=== PATIENT | male | born 1960 | race Caucasian/White ===

== ENCOUNTER 2017-10-26 18:00 | Emergency (ER) | payer BC ==
[~2017-10-26] VITALS: Ht 175.3 cm; Wt 95.3 kg
--- NOTE | 2017-10-26 18:06 | ED.ADGEN ---
Past History Past Medical History: CAD, COPD, Other Past Surgical History: Coronary Bypass Surgery Smoking: Cigarettes Adult General Chief Complaint Chief Complaint "... I been having a lot of neck pain... ".. " I am having it all up here in my neck..." HPI HPI Patient is a 56 year old male who presents with above hx and complaints two days of neck pain with movement. No hx of trauma. No chest pain or dyspnea. Pt. has had some nausea. Pt. pain has been constant for two days. Pt. has findings consistent for muscle spasms. No bruits note in neck. Pt. dose have a cardiac hx. with hx of coronary artery bypass in 2016. Pt. insistent it is not like his cardiac symptoms. . Review of Systems Review of Systems Constitutional: Denies fever or chills [] Eyes: Denies change in visual acuity, redness, or eye pain [] HENT: Denies nasal congestion or sore throat []Complaints of neck pain. Respiratory: Denies cough or shortness of breath [] Cardiovascular: No additional information not addressed in HPI [] GI: Denies abdominal pain, nausea, vomiting, bloody stools or diarrhea [] : Denies dysuria or hematuria [] Musculoskeletal: Denies back pain or joint pain [] Integument: Denies rash or skin lesions [] Neurologic: Denies headache, focal weakness or sensory changes [] Endocrine: Denies polyuria or polydipsia [] All other systems were reviewed and found to be within normal limits, except as documented in this note. Family History Family History Non-contributory Current Medications Current Medications Current Medications Medications (Trade) Dose Ordered Sig/Eric Start Time Stop Time Status Last Admin Dose Admin Ketorolac Tromethamine (Toradol) 30 mg 1X ONCE 10/26/17 18:30 10/26/17 18:32 DC 10/26/17 19:01 30 MG Lactated Ringer's 1,000 ml @ 1,000 mls/hr Q1H 10/26/17 18:30 10/26/17 19:29 DC 10/26/17 18:30 1,000 MLS/HR Magnesium Hydroxide (Milk Of Magnesia) 2,400 mg 1X ONCE 10/26/17 21:15 10/26/17 21:16 DC 10/26/17 21:13 2,400 MG Orphenadrine Citrate (Norflex) 60 mg 1X ONCE 10/26/17 18:30 10/26/17 18:32 DC 10/26/17 19:00 60 MG Potassium Chloride (KCl Oral Soln) 40 meq 1X ONCE 10/26/17 21:15 10/26/17 21:16 DC 10/26/17 21:12 40 MEQ See Nursing for home meds. Allergies Allergies Allergies Coded Allergies Type Severity Reaction Last Updated Verified erythromycin base Allergy Intermediate 10/26/17 Yes Physical Exam Physical Exam Constitutional: mild distress, non-toxic appearance. [] HENT: Normocephalic, atraumatic, bilateral external ears normal, oropharynx moist, no oral exudates, nose normal. [] Eyes: PERRLA, EOMI, conjunctiva normal, no discharge. [] Neck:, no stridor. [] Cervical muscle tenderness. Movement and neck is somewhat limited because of the muscle spasms cervical . Cardiovascular:Heart rate regular rhythm, no murmur [] PMI to Lt. Lungs & Thorax: Bilateral breath sounds equal at apex , few scattered wheezes on auscultation []Mid line scar. Abdomen: Bowel sounds normal, soft, no tenderness, no masses, no pulsatile masses. [] Scar. Skin: Warm, dry, no erythema, no rash. [] Back: No tenderness, no CVA tenderness. [] Extremities: No tenderness, no cyanosis, no clubbing, ROM intact, no edema. [] No cording. Neurologic: Alert and oriented X 3, normal motor function, normal sensory function, no focal deficits noted. [] Psychologic: Affect normal, judgement normal, mood normal. [] Current Patient Data Vital Signs Vital Signs Date Time Temp Pulse Resp B/P (MAP) Pulse Ox O2 Delivery O2 Flow Rate FiO2 10/26/17 21:19 64 18 132/79 (96) 98 Room Air 10/26/17 18:18 98.3 Lab Results Laboratory Tests Test 10/26/17 18:52 White Blood Count 9.2 x10^3/uL (4.0-11.0) Red Blood Count 4.76 x10^6/uL (4.30-5.70) Hemoglobin 14.7 g/dL (13.0-17.5) Hematocrit 42.2 % (39.0-53.0) Mean Corpuscular Volume 89 fL (79-100) Mean Corpuscular Hemoglobin 31 pg (25-35) Mean Corpuscular Hemoglobin Concent 35 g/dL (31-37) Red Cell Distribution Width 13.7 % (11.5-14.5) Platelet Count 287 x10^3/uL (140-400) Neutrophils (%) (Auto) 64 % (31-73) Lymphocytes (%) (Auto) 23 % (24-48) L Monocytes (%) (Auto) 10 % (0-9) H Eosinophils (%) (Auto) 3 % (0-3) Basophils (%) (Auto) 1 % (0-3) Neutrophils # (Auto) 5.8 x10^3uL (1.8-7.7) Lymphocytes # (Auto) 2.1 x10^3/uL (1.0-4.8) Monocytes # (Auto) 0.9 x10^3/uL (0.0-1.1) Eosinophils # (Auto) 0.3 x10^3/uL (0.0-0.7) Basophils # (Auto) 0.1 x10^3/uL (0.0-0.2) Erythrocyte Sedimentation Rate 8 (0-15) Prothrombin Time 10.4 SEC (9.4-11.4) Prothrombin Time INR 1.0 (0.9-1.1) PTT 24 SEC (23-33) Urine Collection Type Unknown Urine Color Straw Urine Clarity Clear Urine pH 6.0 Urine Specific Pierre 1.010 Urine Protein Neg (NEG-TRACE) Urine Glucose (UA) Neg mg/dL (NEG) Urine Ketones (Stick) Trace mg/dL (NEG) Urine Blood Neg (NEG) Urine Nitrite Neg (NEG) Urine Bilirubin Neg (NEG) Urine Urobilinogen Dipstick 0.2 mg/dL (0.2 mg/dL) Urine Leukocyte Esterase Neg (NEG) Urine RBC 1-2 /HPF (0-2) Urine WBC 1-4 /HPF (0-4) Urine Squamous Epithelial Cells Few /LPF Urine Bacteria 0 /HPF (0-FEW) Urine Mucus Slight /LPF Sodium Level 142 mmol/L (136-145) Potassium Level 3.3 mmol/L (3.5-5.1) L Chloride Level 107 mmol/L (98-107) Carbon Dioxide Level 28 mmol/L (21-32) Anion Gap 7 (6-14) Blood Urea Nitrogen 9 mg/dL (8-26) Creatinine 0.9 mg/dL (0.7-1.3) Estimated GFR (Cockcroft-Gault) 87.0 Glucose Level 87 mg/dL (70-99) Calcium Level 8.3 mg/dL (8.5-10.1) L Magnesium Level 1.7 mg/dL (1.8-2.4) L Total Bilirubin 0.2 mg/dL (0.2-1.0) Direct Bilirubin < 0.1 mg/dL (0.0-0.2) Aspartate Amino Transferase (AST) 16 U/L (15-37) Alanine Aminotransferase (ALT) 32 U/L (16-63) Alkaline Phosphatase 117 U/L (46-116) H Creatine Kinase 87 U/L (39-308) Creatine Kinase MB (Mass) 4.3 ng/mL (0.0-3.6) H Creatine Kinase MB Relative Index 4.9 % (0-4) H Troponin I Quantitative < 0.017 ng/mL (0-0.055) ZU-Dbo-C-Type Natriuretic Peptide 527 pg/mL (0-124) H Total Protein 6.6 g/dL (6.4-8.2) Albumin 3.2 g/dL (3.4-5.0) L Urine Opiates Screen Neg (NEG) Urine Methadone Screen Neg (NEG) Urine Barbiturates Neg (NEG) Urine Phencyclidine Screen Neg (NEG) Urine Amphetamine/Methamphetamine Neg (NEG) Urine Benzodiazepines Screen Pos (NEG) Urine Cocaine Screen Neg (NEG) Urine Cannabinoids Screen Neg (NEG) Urine Ethyl Alcohol Neg (NEG) EKG EKG My interpretation of EKG shows sinus []rate of 67, bimodal p , Nonspecific anteroseptal changes. Radiology/Procedures Radiology/Procedures My interpretation of chest x-ray shows cardiomegaly. Status post coronary bypass wires. No acute cardiopulmonary findings noted. CT of neck shows no obvious fracture or dislocation. But does have significant DJD joint changes with osteophytes at C5-6 and C6 and 7.[] Course & Med Decision Making Course & Med Decision Making Pertinent Labs and Imaging studies reviewed. (See chart for details) Patient insistent on discharge. Patient exhibits UCAR capacity. Will follow-up primary care. Patient encourage return if any concerns. Patient take Tylenol and ibuprofen for pain. She take Flexeril up to 3 times a day for muscle spasms. Patient use ice packs. Patient use gentle massage. Patient may take Vicoprofen for marked discomfort. Patient must follow-up primary care. Return if any concerns that his discomfort may be related to cardiac disorder. [] Final Impression Final Impression 1. Neck Pain-DJD 2. Hx. CADz[] 3. Hypokalemia. 4. Torticollis 5. Hypo-magnesium Dragon Disclaimer Dragon Disclaimer This electronic medical record was generated, in whole or in part, using a voice recognition dictation system. MARISSA HOLMAN MD Oct 26, 2017 18:06
[2017-10-26] MEDS ORDERED: IV RINGERS SOLUTION,LACTATED 1,000 ML IV SCH (18:30)
[2017-10-26] MEDS ORDERED: KETOROLAC 30 MG/ML VIAL. IV ONE (18:30)
[2017-10-26] MEDS ORDERED: ORPHENADRINE CITRATE 60 MG/2 ML VIAL. IV ONE (18:30)
--- NOTE | 2017-10-26 19:21 | RAD ---
CT scan of the head without contrast 10/26/2017 Clinical History: Head and neck pain after an adjustment. Technique: Unenhanced, contiguous, 5 mm axial sections were obtained through the head. One or more of the following individualized dose reduction techniques were utilized for this study: 1. Automated exposure control. 2. Adjustment of the mA and/or kV according to patient size. 3. Use of iterative reconstruction technique. Findings: No previous studies are available for comparison. The ventricles and sulci are within normal limits in size and configuration. No area of abnormal attenuation is seen involving the brain parenchyma. No extra-axial fluid collection is seen. No skull fracture is noted. IMPRESSION: Negative study. CT scan of the cervical spine without contrast 10/26/2017 Clinical history: Head and neck pain after an adjustment. Technique: Unenhanced, contiguous, 0.625 mm axial sections were obtained through the cervical spine. Axial, coronal and sagittal reconstructed images were obtained. One or more of the following individualized dose reduction techniques were utilized for this study: 1. Automated exposure control. 2. Adjustment of the mA and/or kV according to patient size. 3. Use of iterative reconstruction technique. Findings: Sagittal and coronal reconstructed images demonstrate mild straightening of the normal cervical lordosis. Degenerative changes consisting of disc space narrowing, vertebral endplate sclerosis and mild anterior and posterior vertebral body osteophyte formation are seen involving the C5-6 and predominantly the C6-7 disc spaces. No fracture or subluxation of the cervical vertebrae is seen. Degenerative changes are seen involving the uncovertebral and facet joints throughout the cervical disc spaces. Atherosclerotic calcification is seen in the region carotid bifurcations. Impression: No fracture or subluxation of the cervical vertebra is identified. Electronically signed by: Kevin Edward MD (10/26/2017 7:17 PM) [facility]
[2017-10-26 19:22] LABS: BASO # 0.1 x10^3/uL (0.0-0.2); BASO % 1 % (0-3); EOS # 0.3 x10^3/uL (0.0-0.7); EOS % 3 % (0-3); HEMATOCRIT 42.2 % (39.0-53.0); HEMOGLOBIN 14.7 g/dL (13.0-17.5); LYMPH # 2.1 x10^3/uL (1.0-4.8); LYMPH % 23 % (24-48); MEAN CORPUSCULAR HEMOGLOBIN 31 pg (25-35); MEAN CORPUSCULAR HGB CONC 35 g/dL (31-37); MEAN CORPUSCULAR VOLUME 89 fL (79-100); MONO # 0.9 x10^3/uL (0.0-1.1); MONO % 10 % (0-9); NEUT # 5.8 x10^3uL (1.8-7.7); NEUT % 64 % (31-73); PLATELET COUNT 287 x10^3/uL (140-400); RED BLOOD COUNT 4.76 x10^6/uL (4.30-5.70); RED CELL DISTRIBUTION WIDTH 13.7 % (11.5-14.5); WHITE BLOOD COUNT 9.2 x10^3/uL (4.0-11.0)
[2017-10-26 19:42] LABS: ALBUMIN 3.2 g/dL (3.4-5.0); ALK PHOS 117 U/L (46-116); ALT (SGPT) 32 U/L (16-63); ANION GAP 7 (6-14); AST (SGOT) 16 U/L (15-37); BLOOD UREA NITROGEN 9 mg/dL (8-26); CALCIUM 8.3 mg/dL (8.5-10.1); CARBON DIOXIDE 28 mmol/L (21-32); CHLORIDE 107 mmol/L (98-107); CREATININE 0.9 mg/dL (0.7-1.3); DIRECT BILIRUBIN < 0.1 mg/dL (0.0-0.2); GLUCOSE 87 mg/dL (70-99); MAGNESIUM 1.7 mg/dL (1.8-2.4); POTASSIUM 3.3 mmol/L (3.5-5.1); SODIUM 142 mmol/L (136-145); TOTAL BILIRUBIN 0.2 mg/dL (0.2-1.0); TOTAL PROTEIN 6.6 g/dL (6.4-8.2)
[2017-10-26 19:48] LABS: BILIRUBIN,URINE NEG (NEG); CLARITY,URINE CLEAR; COLOR,URINE STRAW; GLUCOSE,URINE NEG (NEG); UROBILINOGEN,URINE 0.2 mg/dL (0.2 mg/dL)
[2017-10-26 19:49] LABS: BACTERIA,URINE 0 /HPF (0-FEW); NITRITE,URINE NEG (NEG); SQUAMOUS EPITHELIAL CELL,UR FEW /LPF
[2017-10-26 19:57] LABS: AMPHETAMINE/METHAMPHETAMINE NEG (NEG); BARBITURATES NEG (NEG); BENZODIAZEPINES POS (NEG); CANNABINOIDS NEG (NEG); COCAINE NEG (NEG); METHADONE NEG (NEG); OPIATES NEG (NEG); PHENCYCLIDINE NEG (NEG)
[2017-10-26 20:36] LABS: SEDIMENTATION RATE 8 (0-15)
[2017-10-26] MEDS ORDERED: HYDR-79 PO (20:58)
[2017-10-26] MEDS ORDERED: CYCL-331 PO (20:58)
--- NOTE | 2017-10-26 21:05 | EKG ---
[address] [address] Test Date: 2017-10-26 Test Time: 18:46:50 Pat Name: DEMARCUS GARCIA Department: Room: Gender: M Manager Applied: RAYMUNDO : 1960 Requested By: MARISSA HOLMAN Order Number: [id number] Reading MD: Edenilson Jeffries MD Measurements Intervals Henderson Rate: 67 P: 41 ID: [id number] QRS: 62 QRSD: 94 T: -43 QT: 384 QTc: 409 Interpretive Statements SINUS RHYTHM NON-SPECIFIC ST/T CHANGES LVH Electronically Signed On 10-27-2017 10:24:57 CDT by Edenilson Jeffries MD
[2017-10-26] MEDS ORDERED: POTASSIUM CHLORIDE 20 MEQ/15 ML ORAL LIQUID. PO ONE (21:15)
[2017-10-26] MEDS ORDERED: MAGNESIUM HYDROXIDE 2,400 MG/30 ML ORAL.SUSP. PO ONE (21:15)
[2017-10-26 21:19] VITALS: BP 132/79
--- NOTE | 2017-10-26 21:25 | RAD ---
PA and lateral chest radiographs 10/26/2017 CLINICAL HISTORY: Chest pain. History of coronary artery disease. PA and lateral digital radiographs of the chest were obtained. No previous studies are available for comparison. Surgical changes are seen consistent with a CABG procedure. The cardiac silhouette is normal in size. The thoracic aorta is minimally tortuous. No acute pulmonary infiltrate is seen. No pleural effusion or pneumothorax is noted. Degenerative changes are seen involving the thoracic spine. IMPRESSION: No acute abnormality is seen. Electronically signed by: Kevin Edward MD (10/26/2017 9:21 PM) [facility]
== END 2017-10-26 21:21 | disposition home or self-care (01) ==
LOC: ER 18:00
DX: M47.892 Other spondylosis, cervical region (principal); I25.10 Atherosclerotic heart disease of native coronary artery without angina pectoris; E87.6 Hypokalemia; M43.6 Torticollis; E83.42 Hypomagnesemia; J44.9 Chronic obstructive pulmonary disease, unspecified; F17.210 Nicotine dependence, cigarettes, uncomplicated; Z95.1 Presence of aortocoronary bypass graft; Z88.1 Allergy status to other antibiotic agents
CPT/HCPCS: 36415; 70450; 71046; 72125; 80048; 80076; 80307; 81001; 82553; 83735; 83880; 84443; 84484; 85025; 85610; 85651; 85730; 93005; 96361; 96374; 96375; 99285; J1885; J2360; J7120; G0479

== ENCOUNTER 2017-12-03 18:20 | Emergency (ER) | payer BC ==
[~2017-12-03] VITALS: Ht 172.7 cm; Wt 86.2 kg
[~2017-12-03 18:20] MED LIST: CYCL-331 PO; HYDR-79 PO
--- NOTE | 2017-12-03 18:22 | ED.ADGEN ---
Past History Past Medical History: Arthritis, Heart Disease, Hypertension, Other Past Surgical History: Other Smoking: Cigarettes Alcohol Use: None Drug Use: None Adult General Chief Complaint Chief Complaint "....About 5 to 6 months ago.. I slept wrong and woke up with a neck spasm.. here on the right... I started seeing my doctors at [facility] and I also followed up with my chiropractor... Ever since then I had a sore neck.... Is sometimes worse and sometimes better... Daily she had a CT of my neck 5 months ago... And he said everything looked okay but I still get neck pain... It just sometimes it is worse like to day... I can put my finger right on the sore spot..." HPI HPI Patient is a 56 year old male who presents with above hx and complaints right posterior trapezius muscle spasm/torticollis on right. Approximately at the C5 level. There is no midline tenderness but there is obvious muscle spasm of the trapezius on the right. Patient denies any trauma or recent inciting factors. Patient denies any problems with defecation or urination. Patient denies any problems with use of his right hand or arm. Patient states turning of his neck is difficult because a neck spasm on the right. Patient denies any history immunosuppression. Patient denies any travel. Denies any fevers. Denies any IV drug use. Patient denies any travel. Patient denies any cancer. Patient denies any specific ill contacts. Patient normally follows at [facility] for his care. Patient states spasms are worse when he sleeps and does not use a supporting pillow correctly. Patient states his pain is severe or 10 out of 10 . Patient requesting trigger point injection of his neck. Review of Systems Review of Systems Constitutional: Denies fever or chills [] Eyes: Denies change in visual acuity, redness, or eye pain [] HENT: Denies nasal congestion or sore throat [] complaints of right trapezius muscle spasm Respiratory: Denies cough or shortness of breath [] Cardiovascular: No additional information not addressed in HPI [] GI: Denies abdominal pain, nausea, vomiting, bloody stools or diarrhea [] : Denies dysuria or hematuria [] Musculoskeletal: Denies back pain or joint pain [] Integument: Denies rash or skin lesions [] Neurologic: Denies headache, focal weakness or sensory changes [] Endocrine: Denies polyuria or polydipsia [] All other systems were reviewed and found to be within normal limits, except as documented in this note. Family History Family History Noncontributory Current Medications Current Medications Current Medications Medications (Trade) Dose Ordered Sig/Eric Start Time Stop Time Status Last Admin Dose Admin Ketorolac Tromethamine (Toradol Im) 60 mg 1X ONCE 12/03/17 19:00 12/03/17 19:01 DC 12/03/17 18:44 60 MG Methylprednisolone Acetate (DEPO-Medrol IM) 40 mg 1X ONCE 12/03/17 19:00 12/03/17 19:01 DC 12/03/17 18:44 40 MG Orphenadrine Citrate (Norflex) 60 mg 1X ONCE 12/03/17 19:00 12/03/17 19:01 DC 12/03/17 18:43 60 MG Oxycodone/ Acetaminophen (Percocet 5/325) 2 tab 1X ONCE 12/03/17 19:00 12/03/17 19:01 DC 12/03/17 18:43 2 TAB See nursing for home medications Allergies Allergies Allergies Coded Allergies Type Severity Reaction Last Updated Verified erythromycin base Allergy Intermediate 10/26/17 Yes Physical Exam Physical Exam Constitutional: Moderately acute distress, non-toxic appearance. [] HENT: Normocephalic, atraumatic, bilateral external ears normal, oropharynx moist, no oral exudates, nose normal. [] Eyes: PERRLA, EOMI, conjunctiva normal, no discharge. Glasses Neck: Normal range of motion, right trapezius spasm and tenderness, supple, no stridor. [] Cardiovascular:Heart rate regular rhythm, no murmur [] Lungs & Thorax: Bilateral breath sounds equal apex with scattered wheezes on auscultation [] Abdomen: Bowel sounds normal, soft, no tenderness, no masses, no pulsatile masses. Obese Skin: Warm, dry, no erythema, no rash. [] Back: No tenderness, no CVA tenderness. [] Extremities: No tenderness, no cyanosis, no clubbing, ROM intact, no edema. [] Neurologic: Alert and oriented X 3, normal motor function, normal sensory function, no focal deficits noted. He is right-hand dominant. 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 DTRs are +2 patella and brachial. Distal sensation intact. Patient is ambulatory without problems. Psychologic: Affect anxious, judgement normal, mood normal. [] Current Patient Data Vital Signs Vital Signs Date Time Temp Pulse Resp B/P (MAP) Pulse Ox O2 Delivery O2 Flow Rate FiO2 12/03/17 19:41 152/86 (108) 12/03/17 19:15 76 18 98 Room Air 12/03/17 18:20 99.3 EKG EKG [] Radiology/Procedures Radiology/Procedures [] Course & Med Decision Making Course & Med Decision Making Pertinent Labs and Imaging studies reviewed. (See chart for details). Patient use ice packs when necessary muscle spasm area. Suggested patient to not receive additional chiropractor treatments unless it was just gentle massage. Since his reported CT was negative consider getting a MRI to evaluate further for this chronic neck pain. Patient take Tylenol or ibuprofen for pain. For muscle spasms take Flexeril up to 10 mg 3 times a day. For marked pain may take Vicoprofen up to 4 times a day. Must follow-up. Encouraged patient to stop smoking. Patient return of any concerns. Advised patient we do not normal do trigger point injections for chronic pain while in the emergency department, but this may be inappropriate treatment upon further evaluation with his primary care or pain center. Must follow up. [] Final Impression Final Impression 1. Neck Spasm - Torcolis[] Dragon Disclaimer Dragon Disclaimer This electronic medical record was generated, in whole or in part, using a voice recognition dictation system. MARISSA HOLMAN MD Dec 03, 2017 18:22
[2017-12-03] MEDS ORDERED: CYCL-331 PO (18:34)
[2017-12-03] MEDS ORDERED: HYDR-79 PO (18:34)
[2017-12-03] MEDS ORDERED: KETOROLAC 60 MG/2 ML VIAL. IM ONE (19:00)
[2017-12-03] MEDS ORDERED: oxyCODONE/APAP 5/325 1 TAB TABLET PO ONE (19:00)
[2017-12-03] MEDS ORDERED: ORPHENADRINE CITRATE 60 MG/2 ML VIAL. IM ONE (19:00)
[2017-12-03] MEDS ORDERED: methylPREDNISolone ACETATE 40 MG/ML VIAL. IM ONE (19:00)
[2017-12-03 19:41] VITALS: BP 152/86
== END 2017-12-03 19:43 | disposition home or self-care (01) ==
LOC: ER 18:20
DX: M43.6 Torticollis (principal); M19.90 Unspecified osteoarthritis, unspecified site; I11.9 Hypertensive heart disease without heart failure; F17.210 Nicotine dependence, cigarettes, uncomplicated; Z88.1 Allergy status to other antibiotic agents
CPT/HCPCS: 96372; 99284; J1030; J1885; J2360

== ENCOUNTER 2017-12-13 19:10 | Emergency (ER) | payer BC, OTHER ==
[~2017-12-13] VITALS: Ht 172.7 cm; Wt 95.7 kg
--- NOTE | 2017-12-13 19:14 | ED.ADGEN ---
Past History Past Medical History: Arthritis, Heart Disease, Hypertension, Other Past Surgical History: Coronary Bypass Surgery, Other Smoking: Cigarettes Alcohol Use: None Drug Use: None Adult General Chief Complaint Chief Complaint ".. I have not gotten a MRI yet.. and my neck still hurts.. and seems to have shocks... It is about same as last time I seen you... I see Maegan on this week..." HPI HPI Patient is a 57 year old male who presents with above hx and low neck pain localized on right side and trapezius. Distal neurovascular intact. 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 Muscle spasms noted in right trapezius. Patient denies any new trauma. Bed pain seems to be worse tonight than usual. Patient was last seen by me on . Similar exam to prior evaluation. Patient states pain is so bad that it makes him weak. Patient is right-hand dominant. No history of fevers. No history of cancer. No history of immunosuppression or IV drug use. Reportedly has follow-up this coming Dr. Issa Review of Systems Review of Systems Constitutional: Denies fever or chills [] Eyes: Denies change in visual acuity, redness, or eye pain [] HENT: Denies nasal congestion or sore throat []complains of right trapezius neck pain Respiratory: Denies cough or shortness of breath [] Cardiovascular: No additional information not addressed in HPI [] GI: Denies abdominal pain, nausea, vomiting, bloody stools or diarrhea [] : Denies dysuria or hematuria [] Musculoskeletal: Denies back pain or joint pain [] Integument: Denies rash or skin lesions [] Neurologic: Denies headache, focal weakness or sensory changes [] Endocrine: Denies polyuria or polydipsia [] All other systems were reviewed and found to be within normal limits, except as documented in this note. Family History Family History Noncontributory Current Medications Current Medications Current Medications Medications (Trade) Dose Ordered Sig/Eric Start Time Stop Time Status Last Admin Dose Admin Aspirin (Children'S Aspirin) 324 mg 1X ONCE 12/13/17 19:15 12/13/17 19:26 DC 12/13/17 20:08 324 MG Ketorolac Tromethamine (Toradol) 30 mg 1X ONCE 12/13/17 19:30 8/7/18 19:31 DC 12/13/17 20:09 30 MG Lactated Ringer's 1,000 ml @ 100 mls/hr Q10H 12/13/17 19:30 12/14/17 05:29 12/13/17 20:00 100 MLS/HR Morphine Sulfate (Morphine 10mg Syringe) 10 mg 1X ONCE 12/13/17 19:45 12/13/17 19:53 DC 12/13/17 20:10 10 MG Orphenadrine Citrate (Norflex) 60 mg 1X ONCE 12/13/17 19:30 12/13/17 19:31 DC 12/13/17 20:08 60 MG Allergies Allergies Allergies Coded Allergies Type Severity Reaction Last Updated Verified erythromycin base Allergy Intermediate 12/13/17 Yes Physical Exam Physical Exam Constitutional: Well developed, well nourished, moderately acute distress, rates pain 10 out of 10 and constant, non-toxic appearance. [] HENT: Normocephalic, atraumatic, bilateral external ears normal, oropharynx moist, no oral exudates, nose normal. [] Eyes: PERRLA, EOMI, conjunctiva normal, no discharge. [] Glasses Neck: Normal range of motion, right trapezius tenderness, supple, no stridor. [ ] Cardiovascular:Heart rate regular rhythm, no murmur [] Lungs & Thorax: Bilateral breath sounds at apexes bilaterally on auscultation [ ] Old surgery scar. Abdomen: Bowel sounds normal, soft, no tenderness, no masses, no pulsatile masses. [] Skin: Warm, dry, no erythema, no rash. [] Back: No tenderness, no CVA tenderness. [] Extremities: No tenderness, no cyanosis, no clubbing, ROM intact, no edema. [] Neurologic: Alert and oriented X 3, normal motor function, normal sensory function, no focal deficits noted. []DTRs +2 brachial and patella. Psychologic: Affect anxious , judgement normal, mood normal. [] Current Patient Data Vital Signs Vital Signs Date Time Temp Pulse Resp B/P (MAP) Pulse Ox O2 Delivery O2 Flow Rate FiO2 12/13/17 20:20 86 22 149/91 (110) 96 Room Air 12/13/17 19:19 98.4 Lab Results Laboratory Tests Test 12/13/17 19:34 12/13/17 19:36 White Blood Count 10.8 x10^3/uL (4.0-11.0) Red Blood Count 5.29 x10^6/uL (4.30-5.70) Hemoglobin 16.2 g/dL (13.0-17.5) Hematocrit 46.7 % (39.0-53.0) Mean Corpuscular Volume 88 fL (79-100) Mean Corpuscular Hemoglobin 31 pg (25-35) Mean Corpuscular Hemoglobin Concent 35 g/dL (31-37) Red Cell Distribution Width 14.0 % (11.5-14.5) Platelet Count 260 x10^3/uL (140-400) Neutrophils (%) (Auto) 72 % (31-73) Lymphocytes (%) (Auto) 20 % (24-48) L Monocytes (%) (Auto) 5 % (0-9) Eosinophils (%) (Auto) 3 % (0-3) Basophils (%) (Auto) 1 % (0-3) Neutrophils # (Auto) 7.8 x10^3uL (1.8-7.7) H Lymphocytes # (Auto) 2.1 x10^3/uL (1.0-4.8) Monocytes # (Auto) 0.6 x10^3/uL (0.0-1.1) Eosinophils # (Auto) 0.3 x10^3/uL (0.0-0.7) Basophils # (Auto) 0.1 x10^3/uL (0.0-0.2) Prothrombin Time 10.2 SEC (9.4-11.4) Prothrombin Time INR 1.0 (0.9-1.1) PTT 22 SEC (23-33) L D-Dimer (Sharon) 0.47 mg/L (0.00-0.50) Sodium Level 144 mmol/L (136-145) Potassium Level 3.9 mmol/L (3.5-5.1) Chloride Level 106 mmol/L (98-107) Carbon Dioxide Level 28 mmol/L (21-32) Anion Gap 10 (6-14) Blood Urea Nitrogen 10 mg/dL (8-26) Creatinine 0.8 mg/dL (0.7-1.3) Estimated GFR (Cockcroft-Gault) 99.3 Glucose Level 114 mg/dL (70-99) H Calcium Level 8.7 mg/dL (8.5-10.1) Magnesium Level 1.9 mg/dL (1.8-2.4) Total Bilirubin 0.3 mg/dL (0.2-1.0) Direct Bilirubin 0.1 mg/dL (0.0-0.2) Aspartate Amino Transferase (AST) 20 U/L (15-37) Alanine Aminotransferase (ALT) 36 U/L (16-63) Alkaline Phosphatase 136 U/L (46-116) H Creatine Kinase 80 U/L (39-308) Creatine Kinase MB (Mass) 2.1 ng/mL (0.0-3.6) Creatine Kinase MB Relative Index 2.6 % (0-4) Troponin I Quantitative < 0.017 ng/mL (0-0.055) WL-Qew-D-Type Natriuretic Peptide 661 pg/mL (0-124) H Total Protein 7.5 g/dL (6.4-8.2) Albumin 3.8 g/dL (3.4-5.0) Lipase 159 U/L (73-393) Urine Collection Type Unknown Urine Color Yellow Urine Clarity Clear Urine pH 5.5 Urine Specific Bude 1.025 Urine Protein Neg (NEG-TRACE) Urine Glucose (UA) Neg mg/dL (NEG) Urine Ketones (Stick) Neg mg/dL (NEG) Urine Blood Neg (NEG) Urine Nitrite Neg (NEG) Urine Bilirubin Neg (NEG) Urine Urobilinogen Dipstick 0.2 mg/dL (0.2 mg/dL) Urine Leukocyte Esterase Neg (NEG) Urine RBC Occ /HPF (0-2) Urine WBC Occ /HPF (0-4) Urine Squamous Epithelial Cells Few /LPF Urine Bacteria 0 /HPF (0-FEW) Urine Mucus Marked /LPF Urine Opiates Screen Neg (NEG) Urine Methadone Screen Neg (NEG) Urine Barbiturates Neg (NEG) Urine Phencyclidine Screen Neg (NEG) Urine Amphetamine/Methamphetamine Neg (NEG) Urine Benzodiazepines Screen Neg (NEG) Urine Cocaine Screen Neg (NEG) Urine Cannabinoids Screen Neg (NEG) Urine Ethyl Alcohol Neg (NEG) EKG EKG I interpretation of EKG shows sinus rhythm at 89 bpm. Has some bimodal P-wave's and nonspecific T-wave and septal changes. But no findings of acute STEMI of contralateral changes.[] Radiology/Procedures Radiology/Procedures My interpretation chest x-ray shows no acute cardiopulmonary findings. Reviewed findings prior CT of neck.[] Course & Med Decision Making Course & Med Decision Making Pertinent Labs and Imaging studies reviewed. (See chart for details). Continue ice packs as needed for discomfort. Massage. Tylenol and ibuprofen for pain. Take Flexeril for muscle spasms. Must follow-up primary care and keep follow up with neurosurgery.//Orthopedics. [] Final Impression Final Impression 1. Muscle spasm 2. Torticollis 3 Cervical neuropathy[] Dragon Disclaimer Dragon Disclaimer This electronic medical record was generated, in whole or in part, using a voice recognition dictation system. MARISSA HOLMAN MD Dec 13, 2017 19:14
[2017-12-13] MEDS ORDERED: ASPIRIN 81 MG TAB.CHEW PO ONE (19:15)
--- NOTE | 2017-12-13 19:27 | EKG ---
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
[2017-12-13] MEDS ORDERED: IV RINGERS SOLUTION,LACTATED 1,000 ML IV SCH (19:30)
[2017-12-13] MEDS ORDERED: KETOROLAC 30 MG/ML VIAL. IV ONE (19:30)
[2017-12-13] MEDS ORDERED: ORPHENADRINE CITRATE 60 MG/2 ML VIAL. IM ONE (19:30)
[2017-12-13] MEDS ORDERED: CYCL-331 PO (19:42)
[2017-12-13] MEDS ORDERED: MORPHINE SULFATE 10 MG/ML SYRINGE. SQ ONE (19:45)
[2017-12-13 20:03] LABS: BASO # 0.1 x10^3/uL (0.0-0.2); BASO % 1 % (0-3); EOS # 0.3 x10^3/uL (0.0-0.7); EOS % 3 % (0-3); HEMATOCRIT 46.7 % (39.0-53.0); HEMOGLOBIN 16.2 g/dL (13.0-17.5); LYMPH # 2.1 x10^3/uL (1.0-4.8); LYMPH % 20 % (24-48); MEAN CORPUSCULAR HEMOGLOBIN 31 pg (25-35); MEAN CORPUSCULAR HGB CONC 35 g/dL (31-37); MEAN CORPUSCULAR VOLUME 88 fL (79-100); MONO # 0.6 x10^3/uL (0.0-1.1); MONO % 5 % (0-9); NEUT # 7.8 x10^3uL (1.8-7.7); NEUT % 72 % (31-73); PLATELET COUNT 260 x10^3/uL (140-400); RED BLOOD COUNT 5.29 x10^6/uL (4.30-5.70); WHITE BLOOD COUNT 10.8 x10^3/uL (4.0-11.0)
[2017-12-13 20:14] LABS: AMPHETAMINE/METHAMPHETAMINE NEG (NEG); BARBITURATES NEG (NEG); BENZODIAZEPINES NEG (NEG); CANNABINOIDS NEG (NEG); COCAINE NEG (NEG); METHADONE NEG (NEG); OPIATES NEG (NEG); PHENCYCLIDINE NEG (NEG)
[2017-12-13 20:20] VITALS: BP 149/91
[2017-12-13 20:27] LABS: ALBUMIN 3.8 g/dL (3.4-5.0); CALCIUM 8.7 mg/dL (8.5-10.1); CREATININE 0.8 mg/dL (0.7-1.3); DIRECT BILIRUBIN 0.1 mg/dL (0.0-0.2); GFR 99.3; MAGNESIUM 1.9 mg/dL (1.8-2.4); POTASSIUM 3.9 mmol/L (3.5-5.1); TOTAL BILIRUBIN 0.3 mg/dL (0.2-1.0); TOTAL PROTEIN 7.5 g/dL (6.4-8.2)
[2017-12-13 20:30] LABS: BILIRUBIN,URINE NEG (NEG); CLARITY,URINE CLEAR; COLOR,URINE YELLOW; GLUCOSE,URINE NEG (NEG); UROBILINOGEN,URINE 0.2 mg/dL (0.2 mg/dL)
[2017-12-13 20:31] LABS: BACTERIA,URINE 0 /HPF (0-FEW); NITRITE,URINE NEG (NEG); RBC,URINE OCC /HPF (0-2); SQUAMOUS EPITHELIAL CELL,UR FEW /LPF; WBC,URINE OCC /HPF (0-4)
--- NOTE | 2017-12-13 23:44 | RAD ---
PA and lateral chest radiograph dated December 13, 2017 CLINICAL HISTORY: Shortness of breath. Right-sided neck pain. PA and lateral digital radiographs of the chest were obtained. Comparison study is dated 10/26/2017. The patient is post CABG procedure. The cardiac silhouette is normal in size. The thoracic aorta is minimally tortuous. No acute pulmonary infiltrate is seen. No pleural effusion or pneumothorax is noted. Degenerative changes are seen involving the thoracic spine. IMPRESSION: No acute abnormality is seen. Electronically signed by: Kevin Edward MD (12/13/2017 11:40 PM) [facility]
== END 2017-12-13 20:45 | disposition home or self-care (01) ==
LOC: ER 19:10
DX: M43.6 Torticollis (principal); G54.2 Cervical root disorders, not elsewhere classified; M62.838 Other muscle spasm; M19.90 Unspecified osteoarthritis, unspecified site; I11.9 Hypertensive heart disease without heart failure; F17.210 Nicotine dependence, cigarettes, uncomplicated; Z95.1 Presence of aortocoronary bypass graft; Z88.1 Allergy status to other antibiotic agents
CPT/HCPCS: 36415; 71046; 80048; 80076; 80307; 81001; 82553; 83690; 83735; 83880; 84443; 84484; 85025; 85379; 85610; 85730; 93005; 96372; 96374; 99285; J1885; J2270; J2360; J7120; G0479

== ENCOUNTER 2017-12-19 21:48 | Emergency (ER) | payer OTHER ==
[~2017-12-19] VITALS: Ht 172.7 cm; Wt 95.7 kg
[2017-12-19 21:59] VITALS: BP 171/103
--- NOTE | 2017-12-19 22:19 | PHYS DOC ---
Past History Past Medical History: CAD, High Cholesterol, Heart Disease, Hypertension Past Surgical History: Coronary Bypass Surgery, Other Smoking: Cigarettes Alcohol Use: None Drug Use: None Adult General Chief Complaint Chief Complaint: Neck Pain HPI HPI Patient is a 57 year old male who presents with complaint of chronic neck pain. Patient has been struggling with neck pain over the past 5-6 months. In that time the patient has had multiple evaluations and has had both x-ray and CT imaging of the neck with no conclusive cause for the patient's symptoms. Patient has been seen in this emergency department on 3 occasions over the past 2 months prior to today's visit. The patient is taking medications at home for symptoms including Flexeril and Vicoprofen. The patient states that he has an appointment tomorrow but states that his pain was getting worse tonight and so he came to the emergency department for help with pain control. Patient denies any new or unusual symptoms associated with this pain and denies loss of bowel or bladder control, saddle anesthesia, footdrop, or loss of plate maker strength. Patient rates his pain on my evaluation as 9 out of 10. Patient states that the pain is mostly along the right side of his neck where it has been over the past 5-6 months. Review of Systems Review of Systems Constitutional: Denies fever or chills [] Eyes: Denies change in visual acuity, redness, or eye pain [] HENT: Denies nasal congestion or sore throat [] Respiratory: Denies cough or shortness of breath [] Cardiovascular: Denies chest pain or edema[] GI: Denies abdominal pain, nausea, vomiting, bloody stools or diarrhea [] : Denies dysuria or hematuria [] Musculoskeletal: Neck pain[] Integument: Denies rash or skin lesions [] Neurologic: Denies headache, focal weakness or sensory changes [] All other systems were reviewed and found to be within normal limits, except as documented in this note. Allergies Allergies Allergies Coded Allergies Type Severity Reaction Last Updated Verified erythromycin base Allergy Intermediate 12/13/17 Yes Physical Exam Physical Exam Constitutional: Well developed, well nourished, no acute distress, non-toxic appearance. [] HENT: Normocephalic, atraumatic, bilateral external ears normal, oropharynx moist, no oral exudates, nose normal. [] Eyes: PERRLA, EOMI, conjunctiva normal, no discharge. [] Neck: Normal range of motion, no midline tenderness, right-sided paraspinous muscle tenderness to palpation along distribution is trapezius muscle, trachea midline, no lymphadenopathy. [] Cardiovascular:Heart rate regular rhythm, no murmur [] Lungs & Thorax: Bilateral breath sounds clear to auscultation [] Abdomen: Bowel sounds normal, soft, no tenderness, no masses, no pulsatile masses. [] Skin: Warm, dry, no erythema, no rash. [] Back: No tenderness, no CVA tenderness. [] Extremities: No tenderness, no cyanosis, no clubbing, ROM intact, no edema. [] Neurologic: Alert and oriented X 3, normal motor function, normal sensory function, no focal deficits noted. [] Current Patient Data Vital Signs Vital Signs Date Time Temp Pulse Resp B/P (MAP) Pulse Ox O2 Delivery O2 Flow Rate FiO2 12/19/17 21:59 98.4 106 21 96 Room Air Lab Results Not performed EKG EKG Not performed[] Radiology/Procedures Radiology/Procedures Not performed[] Course & Med Decision Making Course & Med Decision Making Pertinent Labs and Imaging studies reviewed. (See chart for details) Patient was administered Toradol, Dilaudid, and Norflex in the emergency department to help improve pain. Advised patient to keep his appointment tomorrow as scheduled and to continue with his home medications as needed for pain. Advised return to emergency department for any worsening symptoms. Patient was understanding and agreement with treatment plan.[] Dragon Disclaimer Dragon Disclaimer This electronic medical record was generated, in whole or in part, using a voice recognition dictation system. Departure Departure: Impression: Primary Impression: Chronic neck pain Disposition: HOME, SELF-CARE Condition: IMPROVED Referrals: PCP,UNKNOWN (PCP) Patient Instructions: Chronic Pain Additional Instructions: Follow-up with your doctor tomorrow as scheduled. Return to the emergency department for any worsening symptoms. LETI BROUSSARD MD Dec 19, 2017 22:19
[2017-12-19] MEDS ORDERED: HYDROmorphone PF 1 MG/ML DISP.SYRIN IM ONE (22:30)
[2017-12-19] MEDS ORDERED: KETOROLAC 60 MG/2 ML VIAL. IM ONE (22:30)
[2017-12-19] MEDS ORDERED: ORPHENADRINE CITRATE 60 MG/2 ML VIAL. IM ONE (22:30)
== END 2017-12-19 22:48 | disposition home or self-care (01) ==
LOC: ER 21:48
DX: G89.29 Other chronic pain (principal); M54.2 Cervicalgia; I11.9 Hypertensive heart disease without heart failure; E78.00 Pure hypercholesterolemia, unspecified; I25.810 Atherosclerosis of coronary artery bypass graft(s) without angina pectoris; F17.210 Nicotine dependence, cigarettes, uncomplicated; Z88.1 Allergy status to other antibiotic agents
CPT/HCPCS: 96372; 99284; J1170; J1885; J2360

== ENCOUNTER 2017-12-28 19:32 | Emergency (ER) | payer OTHER ==
[~2017-12-28] VITALS: Ht 172.7 cm; Wt 95.7 kg
--- NOTE | 2017-12-28 20:57 | PHYS DOC ---
Past History Past Medical History: CAD, High Cholesterol, Heart Disease, Hypertension Past Surgical History: Coronary Bypass Surgery, Other Smoking: Cigarettes Alcohol Use: None Drug Use: None Adult General Chief Complaint Chief Complaint: Neck Pain HPI HPI Patient is a 57 year old male who presents with complaint of chronic neck pain. Patient has had multiple visits to the emergency department for similar symptoms. Patient has been struggling with neck pain for the last several months. The patient has been seeking help with pain control in the emergency department but states that he has followed with physicians on an outpatient basis for further evaluation of his symptoms. The patient states that he is having difficulty getting an MRI set up through his primary doctor which he thinks is necessary to figure out with going on with his neck. Patient states that most the pain is on the right side of his neck. Patient denies any unusual symptoms and denies loss of bowel or bladder control, saddle anesthesia, or unilateral weakness currently. The patient states that he came here as he is needing help with pain control. Patient does not wish to receive any prescriptions from the emergency department. Review of Systems Review of Systems Constitutional: Denies fever or chills [] Eyes: Denies change in visual acuity, redness, or eye pain [] HENT: Denies nasal congestion or sore throat [] Respiratory: Denies cough or shortness of breath [] Cardiovascular: Denies chest pain or edema[] GI: Denies abdominal pain, nausea, vomiting, bloody stools or diarrhea [] : Denies dysuria or hematuria [] Musculoskeletal: Neck pain[] Integument: Denies rash or skin lesions [] Neurologic: Denies headache, focal weakness or sensory changes [] All other systems were reviewed and found to be within normal limits, except as documented in this note. Current Medications Current Medications Current Medications Medications (Trade) Dose Ordered Sig/Eric Start Time Stop Time Status Last Admin Dose Admin Hydromorphone HCl (Dilaudid) 1 mg 1X ONCE 12/28/17 21:00 12/28/17 21:12/28/17 20:54 1 MG Ketorolac Tromethamine (Toradol Im) 60 mg 1X ONCE 12/28/17 21:00 12/28/17 21:12/28/17 20:53 60 MG Orphenadrine Citrate (Norflex) 60 mg 1X ONCE 12/28/17 21:00 12/28/17 21:01 12/28/17 20:53 60 MG Allergies Allergies Allergies Coded Allergies Type Severity Reaction Last Updated Verified erythromycin base Allergy Intermediate 12/13/17 Yes Physical Exam Physical Exam Constitutional: Well developed, well nourished, no acute distress, non-toxic appearance. [] HENT: Normocephalic, atraumatic, bilateral external ears normal, oropharynx moist, no oral exudates, nose normal. [] Eyes: PERRLA, EOMI, conjunctiva normal, no discharge. [] Neck: Normal range of motion, no midline tenderness, right paraspinous muscle tenderness to palpation, supple, no stridor. [] Cardiovascular:Heart rate regular rhythm, no murmur [] Lungs & Thorax: Bilateral breath sounds clear to auscultation [] Abdomen: Bowel sounds normal, soft, no tenderness, no masses, no pulsatile masses. [] Skin: Warm, dry, no erythema, no rash. [] Back: No tenderness, no CVA tenderness. [] Extremities: Tenderness and palpable spasm to the right paraspinous musculature of the cervical spine, no clubbing, ROM intact, no edema. [] Neurologic: Alert and oriented X 3, normal motor function, normal sensory function, no focal deficits noted. [] Current Patient Data Vital Signs Vital Signs Date Time Temp Pulse Resp B/P (MAP) Pulse Ox O2 Delivery O2 Flow Rate FiO2 12/28/17 20:54 18 97 Room Air 12/28/17 19:50 98.3 95 Lab Results Not performed EKG EKG Not performed[] Radiology/Procedures Radiology/Procedures Not performed[] Course & Med Decision Making Course & Med Decision Making Pertinent Labs and Imaging studies reviewed. (See chart for details) Patient was treated with Dilaudid, Norflex, and Toradol with improvement in symptoms. Advised further pain management to be done under the care patient's primary physician. Advised return to emergency department for any worsening symptoms. Patient was understanding and agreement with treatment plan.[] Dragon Disclaimer Dragon Disclaimer This electronic medical record was generated, in whole or in part, using a voice recognition dictation system. Departure Departure: Impression: Primary Impression: Neck pain, chronic Disposition: 01 HOME, SELF-CARE Condition: IMPROVED Referrals: PCP,NO (PCP) Patient Instructions: Chronic Pain Additional Instructions: You were given medication today to assist with control of your pain. It is highly recommended that you continue further pain management through your primary doctor for all further needs. Return to the emergency department for any worsening symptoms. LETI BROUSSARD MD Dec 28, 2017 20:57
[2017-12-28] MEDS ORDERED: HYDROmorphone PF 1 MG/ML DISP.SYRIN IM ONE (21:00)
[2017-12-28] MEDS ORDERED: ORPHENADRINE CITRATE 60 MG/2 ML VIAL. IM ONE (21:00)
[2017-12-28] MEDS ORDERED: KETOROLAC 60 MG/2 ML VIAL. IM ONE (21:00)
[2017-12-28 21:06] VITALS: BP 145/98
== END 2017-12-28 21:11 | disposition home or self-care (01) ==
LOC: ER 19:32
DX: G89.29 Other chronic pain (principal); M54.2 Cervicalgia; I11.9 Hypertensive heart disease without heart failure; E78.00 Pure hypercholesterolemia, unspecified; I25.810 Atherosclerosis of coronary artery bypass graft(s) without angina pectoris; F17.210 Nicotine dependence, cigarettes, uncomplicated; Z88.1 Allergy status to other antibiotic agents
CPT/HCPCS: 96372; 99284; J1170; J1885; J2360

== ENCOUNTER 2018-01-06 23:47 | Emergency (ER) | payer OTHER ==
[~2018-01-06] VITALS: Ht 172.7 cm; Wt 90.7 kg
[2018-01-06 23:52] VITALS: BP 154/98
--- NOTE | 2018-01-07 00:43 | PHYS DOC ---
Past History Past Medical History: CAD, High Cholesterol, Heart Disease, Hypertension Past Surgical History: Coronary Bypass Surgery, Other Smoking: Cigarettes Alcohol Use: None Drug Use: None Adult General Chief Complaint Chief Complaint: BACK INJURY HPI HPI 57-year-old male presents with right-sided neck pain. This is not new injury, but the patient states that he is having an exacerbation of his chronic neck pain. He states that he has MRI scheduled for January 17 to find out why is having so much pain. He presents tonight because he was unable to sleep due to the pain. He is requesting short-term pain medication until his MRI. He has used Dora and Flexeril in the past. He denies any new injury. He denies fever or chills. Review of Systems Review of Systems Constitutional: Denies fever or chills [] Eyes: Denies change in visual acuity, redness, or eye pain [] HENT: Denies nasal congestion or sore throat [] Respiratory: Denies cough or shortness of breath [] Cardiovascular: No additional information not addressed in HPI [] GI: Denies abdominal pain, nausea, vomiting, bloody stools or diarrhea [] : Denies dysuria or hematuria [] Musculoskeletal: Neck pain[] Integument: Denies rash or skin lesions [] Neurologic: Denies headache, focal weakness or sensory changes [] Endocrine: Denies polyuria or polydipsia [] All other systems were reviewed and found to be within normal limits, except as documented in this note. Allergies Allergies Allergies Coded Allergies Type Severity Reaction Last Updated Verified erythromycin base Allergy Intermediate 12/13/17 Yes Physical Exam Physical Exam Constitutional: Well developed, well nourished, no acute distress, non-toxic appearance. [] HENT: Normocephalic, atraumatic, bilateral external ears normal, oropharynx moist, no oral exudates, nose normal. [] Eyes: PERRLA, EOMI, conjunctiva normal, no discharge. [] Neck: Right-sided paraspinal cervical pain muscle spasms. [] Cardiovascular:Heart rate regular rhythm, no murmur [] Lungs & Thorax: Bilateral breath sounds clear to auscultation [] Abdomen: Bowel sounds normal, soft, no tenderness, no masses, no pulsatile masses. [] Skin: Warm, dry, no erythema, no rash. [] Back: No tenderness, no CVA tenderness. [] Extremities: No tenderness, no cyanosis, no clubbing, ROM intact, no edema. [] Neurologic: Alert and oriented X 3, normal motor function, normal sensory function, no focal deficits noted. [] Psychologic: Affect normal, judgement normal, mood normal. [] EKG EKG [] Radiology/Procedures Radiology/Procedures [] Course & Med Decision Making Course & Med Decision Making Pertinent Labs and Imaging studies reviewed. (See chart for details) The patient does appear very uncomfortable during my exam. A review of the [facility] does show that he has intermittently received hydrocodone in the past. His last prescription was earlier this month. He only has 4 prescriptions for controls in the last year. I will choose do believe that a really does have discomfort and is seeking definitive treatment for his neck pain with an MRI and specialist consult. I will give him 1 mg Dilaudid IM here as well as 10 mg Flexeril by mouth to help him control the pain tonight and get some sleep. I will give him a short course of Dora 5/325 and Flexeril for home. I explained to the patient this is the only prescription the emergency room would be able to give him and that he needs to follow up with his other doctors for further pain management. [] Dragon Disclaimer Dragon Disclaimer This electronic medical record was generated, in whole or in part, using a voice recognition dictation system. Departure Departure: Referrals: PCP,NO (PCP) MATTY HOWE DO Jan 07, 2018 00:43
[2018-01-07] MEDS ORDERED: CYCL-331 PO (00:45)
[2018-01-07] MEDS ORDERED: HYDR-971 PO (00:47)
[2018-01-07] MEDS ORDERED: CYCLOBENZAPRINE 10 MG TABLET. PO ONE (01:00)
[2018-01-07] MEDS ORDERED: HYDROmorphone PF 1 MG/ML DISP.SYRIN IM ONE (01:00)
== END 2018-01-07 01:25 | disposition home or self-care (01) ==
LOC: ER 23:47
DX: G89.29 Other chronic pain (principal); M54.2 Cervicalgia; E78.00 Pure hypercholesterolemia, unspecified; I11.9 Hypertensive heart disease without heart failure; I25.810 Atherosclerosis of coronary artery bypass graft(s) without angina pectoris; F17.210 Nicotine dependence, cigarettes, uncomplicated; Z88.1 Allergy status to other antibiotic agents
CPT/HCPCS: 96372; 99283; J1170

== ENCOUNTER 2018-01-15 20:06 | Emergency (ER) | payer OTHER ==
[~2018-01-15] VITALS: Ht 172.7 cm; Wt 93.0 kg
[~2018-01-15 20:06] MED LIST changes: +HYDR-971 PO
--- NOTE | 2018-01-15 21:20 | PHYS DOC ---
Past History Past Medical History: CAD, Depression, High Cholesterol, Hypertension Past Surgical History: Coronary Bypass Surgery Smoking: Cigarettes Alcohol Use: None Drug Use: None Adult General Chief Complaint Chief Complaint: Neck Pain HPI HPI 57-year-old male returned to the ED with chronic neck pain. I saw the patient in this ER 1 week ago. At that time I provided him with a short course of Ponce as well as Flexeril. The patient states that it did help some but he is out of the Ponce and the pain is worse again. He has his MRI and pain management appointment in 2 days. I explained to the patient I'm unable to provide him an additional prescription that he must establish with a PCP or pain management for continued narcotic pain medication. Patient states verbal understanding and is only asking for a single dose in the ED. He has been taking his Flexeril which helps him sleep. He denies new injury or trauma. Review of Systems Review of Systems Constitutional: Denies fever or chills [] Eyes: Denies change in visual acuity, redness, or eye pain [] HENT: Denies nasal congestion or sore throat [] Respiratory: Denies cough or shortness of breath [] Cardiovascular: No additional information not addressed in HPI [] GI: Denies abdominal pain, nausea, vomiting, bloody stools or diarrhea [] : Denies dysuria or hematuria [] Musculoskeletal: Cervical neck pain[] Integument: Denies rash or skin lesions [] Neurologic: Denies headache, focal weakness or sensory changes [] Endocrine: Denies polyuria or polydipsia [] All other systems were reviewed and found to be within normal limits, except as documented in this note. Allergies Allergies Allergies Coded Allergies Type Severity Reaction Last Updated Verified erythromycin base Allergy Intermediate 12/13/17 Yes Physical Exam Physical Exam Constitutional: Well developed, well nourished, no acute distress, non-toxic appearance. [] HENT: Normocephalic, atraumatic, bilateral external ears normal, oropharynx moist, no oral exudates, nose normal. [] Eyes: PERRLA, EOMI, conjunctiva normal, no discharge. [] Neck: Decreased range of motion due to pain. Significant muscle spasm of the right paraspinal cervical muscles. Tenderness to palpation of the same.[] Cardiovascular:Heart rate regular rhythm, no murmur [] Lungs & Thorax: Bilateral breath sounds clear to auscultation [] Abdomen: Bowel sounds normal, soft, no tenderness, no masses, no pulsatile masses. [] Skin: Warm, dry, no erythema, no rash. [] Back: No tenderness, no CVA tenderness. [] Extremities: No tenderness, no cyanosis, no clubbing, ROM intact, no edema. [] Neurologic: Alert and oriented X 3, normal motor function, normal sensory function, no focal deficits noted. [] Psychologic: Affect normal, judgement normal, mood normal. [] EKG EKG [] Radiology/Procedures Radiology/Procedures [] Course & Med Decision Making Course & Med Decision Making Pertinent Labs and Imaging studies reviewed. (See chart for details) I will give the patient 125 mg of Solu-Medrol IM as well as 1 mg of Dilaudid IM. I will not discharge him with an additional prescription. His appointment is in a little more than 36 hours and he will have to deal with the pain until that time. The patient states verbal understanding. He is stable for discharge at this time. [] Dragon Disclaimer Dragon Disclaimer This electronic medical record was generated, in whole or in part, using a voice recognition dictation system. Departure Departure: Referrals: ELAINE CORTEZ MD (PCP) MATTY HOWE DO Jan 15, 2018 21:19
[2018-01-15] MEDS ORDERED: methylPREDNISolone SOD SUCC PF 125 MG/2 ML VIAL. IV ONE (21:30)
[2018-01-15] MEDS ORDERED: HYDROmorphone PF 1 MG/ML DISP.SYRIN IM ONE (21:30)
[2018-01-15] MEDS ORDERED: methylPREDNISolone SOD SUCC PF 125 MG/2 ML VIAL. IM ONE (22:00)
== END 2018-01-15 22:09 | disposition home or self-care (01) ==
LOC: ER 20:06
DX: G89.29 Other chronic pain (principal); M54.2 Cervicalgia; I25.810 Atherosclerosis of coronary artery bypass graft(s) without angina pectoris; F32.9 Major depressive disorder, single episode, unspecified; E78.00 Pure hypercholesterolemia, unspecified; I10 Essential (primary) hypertension; F17.210 Nicotine dependence, cigarettes, uncomplicated; Z88.1 Allergy status to other antibiotic agents
CPT/HCPCS: 96372; 99284; J1170; J2930

== ENCOUNTER 2018-01-27 10:23 | Emergency (ER) | payer OTHER ==
[~2018-01-27] VITALS: Ht 172.7 cm; Wt 90.7 kg
[2018-01-27 10:35] VITALS: BP 157/96
[2018-01-27] MEDS ORDERED: Percogesic PO (11:00)
--- NOTE | 2018-01-27 11:00 | PHYS DOC ---
Past History Past Medical History: CAD, High Cholesterol, Hypertension Past Surgical History: Coronary Bypass Surgery Smoking: Cigarettes Alcohol Use: None Drug Use: None Adult General Chief Complaint Chief Complaint: Neck Pain HPI HPI Patient is a 57 year old male who presents with leaning of chronic right-sided neck pain. Patient states he has had right-sided neck pain and seen pain management and bleeding for having MRI next week but his home pain does not helping for his pain and asking for stronger pain medication. Patient complaining of chronic numbness of right hand intermittently and denies nausea and vomiting, fever and chills, new injury. Patient states he moved from the [place] to this area or sensory. Patient had 8 emergency room visit for the last 2 months with the complaining of neck pain and treated with different medication including Dilaudid injection in the emergency room and asking for the same pain medication. Review of Systems Review of Systems Constitutional: Denies fever or chills [] Eyes: Denies change in visual acuity, redness, or eye pain [] HENT: Denies nasal congestion or sore throat [] Respiratory: Denies cough or shortness of breath [] Cardiovascular: No additional information not addressed in HPI [] GI: Denies abdominal pain, nausea, vomiting, bloody stools or diarrhea [] : Denies dysuria or hematuria [] Musculoskeletal: Reports neck pain Integument: Denies rash or skin lesions [] Neurologic: Denies headache, focal weakness [] Endocrine: Denies polyuria or polydipsia [] All other systems were reviewed and found to be within normal limits, except as documented in this note. Current Medications Current Medications Current Medications Medications (Trade) Dose Ordered Sig/[facility] Start Time Stop Time Status Last Admin Dose Admin Orphenadrine Citrate (Norflex) 60 mg 1X ONCE 01/27/18 11:20 01/27/18 11:21 Allergies Allergies Allergies Coded Allergies Type Severity Reaction Last Updated Verified erythromycin base Allergy Intermediate 01/27/18 Yes Physical Exam Physical Exam Constitutional: Well developed, well nourished, mild distress, non-toxic appearance. [] HENT: Normocephalic, atraumatic Eyes: PERRLA, EOMI, conjunctiva normal, no discharge. [] Neck: Normal range of motion, no tenderness, supple, no stridor, patient moving his neck without any problem but complaining of severe pain when asking about neck pain. [] Cardiovascular:Heart rate regular rhythm, no murmur [] Lungs & Thorax: Bilateral breath sounds clear to auscultation [] Back: No tenderness, no CVA tenderness. [] Extremities: No tenderness, no cyanosis, no clubbing, ROM intact, no edema. [] Neurologic: Alert and oriented X 3, normal motor function, normal sensory function, no focal deficits noted. [] Psychologic: Affect anxious, judgement normal, mood normal. [] Current Patient Data Vital Signs Vital Signs Date Time Temp Pulse Resp B/P (MAP) Pulse Ox O2 Delivery O2 Flow Rate FiO2 01/27/18 10:35 97.8 103 18 98 Room Air EKG EKG [] Radiology/Procedures Radiology/Procedures [] Course & Med Decision Making Course & Med Decision Making Evaluation of patient in ER showed 57-year-old male patient with frequent emergency room visits complaining of chronic neck pain and asking for stronger pain medication in ER and home. Patient walked to the hospital by himself and had a shot of Norflex in ER and plan to discharge with prescription of Percogesic and continue home medication. Patient has had frequent emergency room visits and drug-seeking behavior. Patient mentioned that if I give him good pain medication he can give good evaluation about me when the hospital staff calling for post ER visit survey. Patient informed that it does not change the plan of care and he needs to follow up with his pain management regarding chronic pain. Dragon Disclaimer Dragon Disclaimer This electronic medical record was generated, in whole or in part, using a voice recognition dictation system. Departure Departure: Impression: Primary Impression: Chronic neck pain Additional Impressions: Tobacco abuse Tobacco abuse counseling Disposition: 01 HOME, SELF-CARE Condition: STABLE Referrals: ELAINE CORTEZ MD (PCP) Patient Instructions: Chronic Pain, Chronic Pain Management Additional Instructions: Continue current home medication Follow-up with your primary care physician in 3-5 days Return to ER if not getting better Scripts [Percogesic] No Conflict Check 1 TAB PO QID PRN for PAIN, #14 Prov: СВЕТЛАНА OSCAR MD 01/27/18 Problem Qualifiers СВЕТЛАНА OSCAR MD Jan 27, 2018 11:00
[2018-01-27] MEDS ORDERED: ORPHENADRINE CITRATE 60 MG/2 ML VIAL. IM ONE (11:20)
[2018-01-28] MEDS ORDERED: ORPH-16 PO (02:51)
[2018-01-28] MEDS ORDERED: HYDR-971 PO (02:51)
== END 2018-01-27 11:23 | disposition home or self-care (01) ==
LOC: ER 10:23
DX: G89.29 Other chronic pain (principal); M54.2 Cervicalgia; E78.00 Pure hypercholesterolemia, unspecified; I10 Essential (primary) hypertension; I25.810 Atherosclerosis of coronary artery bypass graft(s) without angina pectoris; Z71.6 Tobacco abuse counseling; Z88.1 Allergy status to other antibiotic agents
CPT/HCPCS: 96372; 99283; J2360

== ENCOUNTER 2018-01-28 02:07 | Emergency (ER) | payer OTHER ==
[~2018-01-28] VITALS: Ht 172.7 cm; Wt 98.0 kg
[~2018-01-28 02:07] MED LIST changes: +Percogesic PO
[2018-01-28 02:15] VITALS: BP 157/96
[2018-01-28] MEDS ORDERED: HYDR-971 PO (02:51)
[2018-01-28] MEDS ORDERED: ORPH-16 PO (02:51)
--- NOTE | 2018-01-28 02:52 | PHYS DOC ---
Past History Past Medical History: CAD, Depression, High Cholesterol, Hypertension Past Surgical History: Appendectomy, Coronary Bypass Surgery Smoking: Cigarettes Additional Smoking Information: chews tobacco Alcohol Use: Occasionally Drug Use: None Adult General Chief Complaint Chief Complaint: Neck Pain HPI HPI 57-year-old male presents with a 5 month history of neck pain primarily to the right side. Patient reports he was asleep and woke with the start with sensation that his neck popped. Patient does have radiation down into his right arm primarily upon movement of his neck. Patient has been seen in the emergency department here at [facility] multiple times for same and has been then given pain medication with some relief. Patient reports he finally was able to get an MRI scheduled and is to be seen on 02/01/2018. Patient also is to follow with pain management. Patient reports he is currently out of pain medication at this time. Reports he recently finished a course of steroids. Patient was seen yesterday for same in the emergency department and was given a prescription for Percogesic without relief. Denies recent trauma. Denies fever or chills. Patient requesting control of his pain at this time. Review of Systems Review of Systems Constitutional: Denies fever or chills [] Eyes: Denies change in visual acuity, redness, or eye pain [] HENT: Denies nasal congestion or sore throat [] Respiratory: Denies cough or shortness of breath [] Cardiovascular: Denies chest pain or palpitations GI: Denies abdominal pain, nausea, vomiting, or diarrhea [] : Denies dysuria or hematuria [] Musculoskeletal: Reports neck pain with radiation Integument: Denies rash or skin lesions [] Neurologic: Denies headache, focal weakness or sensory changes Complete systems were reviewed and found to be within normal limits, except as documented in this note. Allergies Allergies Allergies Coded Allergies Type Severity Reaction Last Updated Verified erythromycin base Allergy Intermediate 01/28/18 Yes Physical Exam Physical Exam Constitutional: Well developed, well nourished, no acute distress, non-toxic appearance. Appears uncomfortable HENT: Normocephalic, atraumatic, Eyes: EOMI, conjunctiva normal, no discharge. [] Neck: Supple, limited range of motion primarily rotating to the right and with extension. Paraspinal tenderness noted to mid cervical spine. No midline bony tenderness Skin: Warm, dry, no erythema, no rash. [] Neurologic: Alert and oriented X 3, speech normal Psychologic: Affect normal, judgement normal, mood anxious Current Patient Data Vital Signs Vital Signs Date Time Temp Pulse Resp B/P (MAP) Pulse Ox O2 Delivery O2 Flow Rate FiO2 01/28/18 02:15 98.2 110 22 98 Room Air EKG EKG [] Radiology/Procedures Radiology/Procedures [] Course & Med Decision Making Course & Med Decision Making Patient presents with acute on chronic neck pain and reported he is currently out of pain medication. Patient reports he is to follow with pain management and to undergo a MRI this coming Tuesday. Patient appears neurologically intact. No midline cervical spine tenderness appreciated. No history of recent trauma. Patient is afebrile. Pain addressed. K tracks prescription monitoring resulted patient last received 40 tabs of hydrocodone 5/325mg on 01/17/2018. Patient advised as this is the first time I have seen patient in the emergency department I would be comfortable with a one-time courtesy refill of 6 tablets of 5/325 mg [place]. Patient advised upon return to the emergency department he would not be offered additional refills. Patient also given prescription for Norflex. Patient stable for discharge with outpatient follow-up with PCP/pain specialist. Discussed findings and plan with patient, who acknowledges understanding and agreement. Dragon Disclaimer Dragon Disclaimer This electronic medical record was generated, in whole or in part, using a voice recognition dictation system. Departure Departure: Impression: Primary Impression: Chronic neck pain Disposition: HOME, SELF-CARE Condition: STABLE Referrals: ELAINE CORTEZ MD (PCP) Patient Instructions: Cervical Radiculopathy, [id number], Chronic Pain Management Scripts Orphenadrine Citrate (ORPHENADRINE CITRATE) 100 Mg Tablet.er 1 TAB PO BID PRN for MUSCLE PAIN, #14 TAB 0 Refills Prov: NELSON HERNANDEZ DO 01/28/18 Hydrocodone Bit/Acetaminophen (NORCO 5-325 TABLET) 1 Each Tablet 1 TAB PO PRN Q6HRS PRN for PAIN, #6 TAB 0 Refills Prov: NELSON HERNANDEZ DO 01/28/18 NELSON HERNANDEZ DO Jan 28, 2018 02:52
[2018-01-28] MEDS ORDERED: HYDROcodone/APAP 7.5/325MG 1 TAB TABLET PO ONE (03:00)
[2018-01-28] MEDS ORDERED: ORPHENADRINE CITRATE 60 MG/2 ML VIAL. IM ONE (03:00)
== END 2018-01-28 03:02 | disposition home or self-care (01) ==
LOC: ER 02:07
DX: G89.29 Other chronic pain (principal); M54.2 Cervicalgia; I25.810 Atherosclerosis of coronary artery bypass graft(s) without angina pectoris; F32.9 Major depressive disorder, single episode, unspecified; E78.00 Pure hypercholesterolemia, unspecified; I10 Essential (primary) hypertension; F17.210 Nicotine dependence, cigarettes, uncomplicated; Z88.1 Allergy status to other antibiotic agents
CPT/HCPCS: 96372; 99283; J2360